=== PATIENT | male | born 1955 | race Caucasian/White ===

== ENCOUNTER 2024-04-24 15:11 | Outpatient (AMB) | payer BC, SELFPAY ==
--- NOTE | 2024-04-24 15:12 | MHC.OFFVIS ---
Vital Signs 04/24/24 15:22 Height 5 ft 7 in Weight 180 lb 12.465 oz BMI 28.3 BP 146/90 H Blood Pressure Location Rt brachial Position Sitting Pulse 66 Pulse Source Pulse Oximeter Pulse Oximetry (%) 98 Oxygen Delivery Method Room Air Intake Visit Reasons: Colonoscopy Screening Intake Note: NEW PATIENT [place] presents in office today for a scheduled colo consult Prior hx of colo/egd? [facility] yes [facility]. 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 Meds reviewed? Yes Allergies reviewed? Yes Any significant concerns or questions? Nothing per pt currently. Pharmacy verified? [facility] [employer] Required: No Allergies No Known Allergies Allergy (Verified 04/24/24 15:18) HPI HPI Colonoscopy Screening: Details: 68 year old? male here today for pre colonoscopy screening.? Patient was sent to us by his PCP.? Last colonoscopy in 2019, patient was told to return in 5 years for colorectal screening.? 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 Patient denies any gastrointestinal symptoms in the past or at present.? Personal and family history of tubular adenomas. Patient denies any family history of CRC. ? Denies history of difficulty with sedation or anesthesia in the past.? Negative for history of sleep apnea.? Denies any history of cardiac, renal, pulmonary, or hepatic disease.?? No history of infectious? diseases like hepatitis A, B, C, HIV or tuberculosis.? Patient is not on any anticoagulation. [facility] Medical History (Updated 04/24/24 @ 15:22 by RENATO Garcia) Basal cell carcinoma (~2019) Inguinal hernia bilateral, non-recurrent (~05/2009) Surgical History (Updated 04/24/24 @ 15:21 by RENATO Garcia) H/O colonoscopy (~05/2018) Social History (Updated 04/24/24 @ 15:22 by RENATO Garcia) Alcohol intake: never Patient Tobacco Use Status: Never used Tobacco Use of substances other than those prescribed or required for medical reasons: No Review of Systems Const Denies weight gain and Denies weight loss ENT Reports no additional complaints, Denies dysphagia and Denies odynophagia Card Reports no additional complaints Resp Reports no additional complaints GI Denies abdominal pain, Denies belching, Denies melena, Denies bloating, Denies change in bowel habits, Denies dysphagia, Denies excessive flatus, Denies dyspepsia, Denies heartburn, Denies diarrhea, Denies loose stools, Denies nausea, Denies odynophagia and Denies vomiting Reports no additional complaints Musc Reports no additional complaints Neuro Reports no additional complaints Psych Reports no additional complaints Endo Reports no additional complaints Physical Exam Vital Signs: Last Vital Signs Pulse 66 04/24/24 15:22 BP 146/90 H 04/24/24 15:22 Pulse Ox 98 04/24/24 15:22 Oxygen Delivery Method Room Air 04/24/24 15:22 BMI result Body Mass Index 28.3 Const General: healthy appearing, no acute distress and well developed Nutritional Appearance: well nourished Orientation/consciousness: patient oriented x3 Resp Effort & Inspection: normal respiratory effort, able to speak in complete sentences, no tracheal deviation and symmetric chest movement Auscultation: clear to auscultation bilaterally Cardio Rate: regular rate GI Inspection: Yes normal to inspection and No distended Palpation (GI): Soft to palpation, not firm, nontender and No hepatosplenomegaly present Auscultation: normal bowel sounds General: Yes no CVA tenderness Back/Spine/Pelvis Back: no CVA tenderness Skin General skin exam: elasticity normal, turgor normal and dry skin Neuro General: patient oriented x3 Psych Appearance: grossly normal Mental Status: mental status grossly normal Assessment & Plan Assessment & Plan (1) Screen for colon cancer: Code(s): Z12.11 - Encounter for screening for malignant neoplasm of colon Plan Patient denies any GI, cardiac or respiratory symptoms.? Denies any issues with anesthesia in the past.? Denies any history of sleep apnea.? No history infectious diseases in the past or present.? Not on any anticoagulation therapy.? No family or personal history of colon cancer or polyps.? Patient denies melena, hematochezia, unintentional weight loss or ribbon like stools.? Discussed at length the pre-procedure,? prep, diet & medications as well as what to expect prior, during and after the procedure.?? Stressed the importance of good bowel prep.? Recommended the use of Vaseline or Calmoseptine OTC & baby wipes with bowel movements to promote comfort.? ?Patient verbalizes understanding and agrees to plan of care.? He was given the opportunity to ask questions and all questions answered.? We will see him after the procedure.? Medications: New polyethylene glycol 3350 (Miralax) As directed by gastroenterology department at [facility] 238 grams PO ONCE 238 grams 0RF Z12.11 - Encounter for screening for malignant neoplasm of colon bisacodyl (Dulcolax (bisacodyl)) take 4 tabs at noon the day before your colonoscopy 20 mg (4 x 5 mg) PO ONCE 4 tabs 0RF 1 day Z12.11 - Encounter for screening for malignant neoplasm of colon Coding Level of Care Code New Pt Level 3 (67898) Diagnoses Screen for colon cancer Z12.11 Time Spent (min) 40 Comment 30 minutes spent with patient and additional 10 minutes spent reviewing his records
[2024-04-24 15:22] VITALS: BP 146/90; PULSE 66; O2SAT 98; BMI 28.3
== END 2024-04-24 16:23 | disposition home or self-care (01) ==
PROVIDERS: PCP Internal Medicine; Visit Provider Nurse Practitioner Family
DX: Z01.818 Encounter for other preprocedural examination (principal); Z12.11 Encounter for screening for malignant neoplasm of colon
CPT/HCPCS: S0285

== ENCOUNTER 2024-08-08 06:00 | Day surgery (SDC) | payer BC, SELFPAY ==
--- OUTSIDE RECORDS SUMMARY | 2024-07-04 10:05 | XMS_ITS | Clinical Summary ---
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 Name Role Phone Unavailable Primary Care Provider Unavailabl e Social History Tobacco Use Types Packs/Day Years Used Date Smoking Tobacco: Never Assessed Sex and Gender Information Value Date Recorded Sex Assigned at Not on file Legal Sex Male 11:36 AM EST Gender Identity Not on file Sexual Orientation Not on file Plan of Treatment Health Maintenance Due Date Last Done Comments Colorectal Cancer Screening: Annual FOBT 11/09/2004 Colorectal Cancer Screening: Colonoscopy 11/09/2004 Colorectal Cancer Screening: Sigmoidoscopy 11/09/2004 Pneumococcal Vaccine: 65+ Years (2 of 2 - PCV) 11/09/2020 09/11/2014, 04/15/2009 Influenza Vaccine (#1) 2024 9, 02/13/2009, 04/11/2008, Additional history exists Hepatitis B Vaccine Aged Out 10/04/2012 No longe r eligible based on patient's age to complete this topic Insurance [facility]
[2024-08-04 14:06] VITALS: BMI 28.3
[2024-08-08 06:24] VITALS: BMI 28.2
[2024-08-08 06:36] VITALS: BP 126/74; PULSE 65; RESP 18; TEMP 36.7; O2SAT 97
[2024-08-08] MEDS: Lactated Ringers 1,000 ML 80 ML IVCONT (06:37)
--- NOTE | 2024-08-08 07:16 | P.CONAN_ITS ---
[facility] Past Medical History Medical History Intermittent asthma PAF (paroxysmal atrial fibrillation) Mild mitral insufficiency Chronic renal insufficiency Basal cell carcinoma (~2019) Inguinal hernia bilateral, non-recurrent (~05/2009) Family History Family history of problems with anesthesia: No Surgical History Surgical History Hx of bilateral inguinal hernia repair H/O colonoscopy (~05/2018) History of Problems with Anesthesia: No Social History Social History (Updated 08/04/24 @ 14:07 by Erin Chicas RN) Are you a primary school childcare attendant to a significant other at home: No Do you presently have visiting nurse or other home services: No Alcohol intake: never Patient Tobacco Use Status: Never used Tobacco Use of substances other than those prescribed or required for medical reasons: No Have you been hit, kicked, punched, or otherwise hurt by someone within the past year? If so, by whom?: No Are you DNR?: No Advance Directives: No Advance Directives Information Provided: Yes Recently lost weight without trying: No Nutrition Risks: No Nutritional Risk Meds Allergies Allergy/AdvReac Type Severity Reaction Status Date / Time No Known Allergies Allergy Verified 08/08/24 06:24 Active Medications: Current Medications Lactated Ringer's (Lr) 1,000 mls @ 80 mls/hr IVCONT .[id number] SHEEBA Last Admin: 08/08/24 06:37 Dose: 80 mls/hr Home Medications ?Medication ?Instructions ?Recorded ?Confirmed ?Last Taken ?Type albuterol 90 mcg/actuation aerosol 90 mcg inhalation Q4H PRN 04/20/24 08/04/24 Unknown History inhaler Shortness Of Breath Or Wheezing multivitamin 1 tab PO DAILY 04/20/24 08/04/24 Unknown History docusate sodium 100 mg capsule 200 mg PO DAILY PRN Constipation 04/24/24 08/04/24 Unknown History (Colace) Exam Height,Weight and Vital Signs: Height 5 ft 7 in Weight 81.8 kg Last Vital Signs Temp 98.0 F 08/08/24 06:36 Pulse 65 08/08/24 06:36 Resp 18 08/08/24 06:36 BP 126/74 08/08/24 06:36 Pulse Ox 97 08/08/24 06:36 O2 Del Method Room Air 08/08/24 06:36 Airway Mallampati Class: II TM Dist: >3cm Neck ROM: Full Assessment and Plan Assessment Anesthesia Assessment: Anesthesia Plan Discussed and Chart Reviewed Final Anesthetic Review Family History of Problems with Anesthesia: No History of Problems with Anesthesia: No NPO: Yes ASA Class: II Final Preanesthetic Review: No Changes in Pt Med Stat, Meds/Allgs Chart Reviewed, Consent Obtained/Reviewed and Anes Risks/Benef Reviewed Patient Risk: Low Procedure Risk: Low Anesthetic Plan Anesthetic Plan: TIVA Disposition: Standard PACU
--- NOTE | 2024-08-08 07:40 | MHC.SHP ---
Pre-Procedural Eval Section A - 24 Hr Update-Section A only Date of Service: 08/08/24 Section B - Complete if H&P > 30 days Chief Complaint: Encounter for screening for malignant neoplasm of Relevant Family History (Specify if Yes): Yes Relevant Social History: None Present Medications: see Short Stay Collaborative assessment Medical History: Significant History (Intermittent asthma PAF (paroxysmal atrial fibrillation) Mild mitral insufficiency Chronic renal insufficiency Basal cell carcinoma (~2019) Inguinal hernia bilateral, non-recurrent (~05/2009)) History of Previous Operations: Relevant previous surgery/procedure and date(s) ( Hx of bilateral inguinal hernia repair H/O colonoscopy (~05/2018)) Allergies: Allergies Allergy/AdvReac Type Severity Reaction Status Date / Time No Known Allergies Allergy Verified 08/08/24 06:24 Review of Systems Sugical H&P ROS: Negative: Constitution, Cardiovascular, Respiratory, Neurological, Psychiatric, Hem-Onc, Allergic/Immunologic, Gastrointestinal, Genitourinary, Musculoskeletal, Integumentary, Endocrine and Eyes/Ears/Nose/Throat Exam Surgical H&P Exam: Normal: HEENT, Normal: Heart, Normal: Lungs, Normal: Extremities, Normal: Abdomen, Normal: Skin and Normal: Neurological Plan Diagnosis/Plan: Unchanged I have reviewed the history and physical and performed a pertinent physical examination on my patient. No changes have occurred unless specified. Time Spent With Patient Time: Total time managing care of this patient today ____ minutes.
--- NOTE | 2024-08-08 08:03 | HO.OPN-COLON ---
Colonoscopy Operative Note Operative Note Date of Service: 08/08/24 Narrative: Operative Information Procedure Description: Colonoscopy Indication: screening Anesthesia: MAC COLONOSCOPY Instrument: Olympus variable stiffness pediatric scope 190L Colonoscopy Monitoring: Vital signs and clinical assessment, continuous EKG monitoring, Pulse oximetry, Carbon Dioxide monitoring and blood pressure monitoring were done throughout the procedure. Colon withdrawal time was 9 minutes. Procedure: The patient was placed in the left lateral decubitis position and pre-procedure medications were administered. After a digital rectal examination of the ano-rectum, the video colonoscope was inserted into the rectum and advanced through the colon to the cecum/TI. The colonoscope was slowly withdrawn in a retrograde panoramic fashion and the colon mucosa was carefully examined including a retroflexed view of the rectum. Findings and interventions are described below. Procedure Difficulty: easy Findings: Terminal Ileum-normal Cecum:normal right sided retroflexion- normal Ascending Colon: normal Transverse Colon -normal Descending Colon:normal Sigmoid Colon: normal Rectum: Retroflexion with small internal hemorrhoids seen, grade I Anorectum - normal Intervention: none Colon preparation: [place] Bowel Preparation Scale Right colon; 2 Transverse colon: 3 Left colon; 3 (0 = Unprepared colon segment with mucosa not seen due to solid stool that cannot be cleared. 1 = Portion of mucosa of the colon segment seen, but other areas of the colon segment not well seen due to staining, residual stool and/or opaque liquid. 2 = Minor amount of residual staining, small fragments of stool and/or opaque liquid, but mucosa of colon segment seen well. 3 = Entire mucosa of colon segment seen well with no residual staining, small fragments of stool or opaque liquid) Impression and Post Procedure Diagnosis: internal hemorrhoids Plan: High fiber diet leaflet Avoid straining at stool, epsom salts and sitz bath, anusol supps or cream Repeat Colonoscopy in 5 years due to Fh of polyps or earlier if clinically indicated Above findings were reviewed with the patient and relevant handouts were provided if indicated.
[2024-08-08 08:12] VITALS: BP 106/56; PULSE 64; RESP 14; TEMP 36.6; O2SAT 98
[2024-08-08 08:27] VITALS: BP 112/67; PULSE 58; RESP 16; TEMP 36.6; O2SAT 98
== END 2024-08-08 08:42 | disposition home or self-care (01) ==
PROVIDERS: PCP Internal Medicine; Visit Provider Internal Medicine Gastroenterology
PROC: 0DJD8ZZ Inspection of Lower Intestinal Tract, Via Natural or Artificial Opening Endoscopic (ICD-10-PCS; CPT 45378; principal; 2024-08-08 07:30)
DX: Z12.11 Encounter for screening for malignant neoplasm of colon (principal); Z86.0101 Personal history of adenomatous and serrated colon polyps; Z83.719 Family history of colon polyps, unspecified; K64.0 First degree hemorrhoids; N18.2 Chronic kidney disease, stage 2 (mild); I48.0 Paroxysmal atrial fibrillation; J45.909 Unspecified asthma, uncomplicated; I34.0 Nonrheumatic mitral (valve) insufficiency; C44.91 Basal cell carcinoma of skin, unspecified; Z79.899 Other long term (current) drug therapy; Z98.890 Other specified postprocedural states
CPT/HCPCS: 45378; J2003; J2704

== ENCOUNTER → 2024-08-08 06:00 | Outpatient (BNV) | payer BC, SELFPAY | PROVIDERS: PCP Internal Medicine; Visit Provider Internal Medicine Gastroenterology | DX: Z12.11 Encounter for screening for malignant neoplasm of colon (principal); Z83.719 Family history of colon polyps, unspecified; K64.0 First degree hemorrhoids | CPT/HCPCS: 45378 ==